=== PATIENT | male | born 1965 | race Caucasian/White ===

== ENCOUNTER 2017-04-13 09:05 | Day surgery (SDC) | payer BC ==
[~2017-04-13] VITALS: Ht 175.3 cm; Wt 121.1 kg
[~2017-04-13 09:05] MED LIST: LOPRESSOR 225 MG/TAB PO; NORCO 325 MG-7.1 TAB PO
[2017-04-13 09:57] VITALS: BP 147/82; PULSE 65; TEMP 98
[2017-04-13 13:10] VITALS: BP 150/94; PULSE 65; TEMP 97.4
[2017-04-13 13:25] VITALS: BP 131/101; PULSE 68
[2017-04-13 13:50] VITALS: BP 124/71; PULSE 58
[2017-04-13] MEDS ORDERED: NORCO 325 MG-51 TAB PO (14:07)
[2017-04-13] MEDS ORDERED: PYRIDIUM 100MG100 MG PO (14:07)
[2017-04-13] MEDS ORDERED: COLACE 100100 MG/CAP PO (14:08)
[2017-04-13 14:10] VITALS: BP 115/71; PULSE 59
[2017-04-13 17:41] VITALS: BP 132/91; PULSE 63; TEMP 97
== END 2017-04-13 15:05 | disposition home or self-care (01) ==
LOC: SDCO 09:05
DX: N20.1 Calculus of ureter (principal); E78.00 Pure hypercholesterolemia, unspecified; E66.9 Obesity, unspecified; F17.220 Nicotine dependence, chewing tobacco, uncomplicated; I10 Essential (primary) hypertension; M19.90 Unspecified osteoarthritis, unspecified site; F41.9 Anxiety disorder, unspecified; Z90.49 Acquired absence of other specified parts of digestive tract; Z84.1 Family history of disorders of kidney and ureter; Z82.49 Family history of ischemic heart disease and other diseases of the circulatory system; Z83.3 Family history of diabetes mellitus
CPT/HCPCS: C1769; C1894; C2617; J0690; J1100; J1885; J2405; J2704; J3010; J7120

== ENCOUNTER 2017-10-05 10:11 | Inpatient (IN) | payer BC ==
[~2017-10-05] VITALS: Ht 175.3 cm; Wt 117.2 kg
[~2017-10-05 10:11] MED LIST changes: +COLACE 100100 MG/CAP PO; +NORCO 325 MG-51 TAB PO; +PYRIDIUM 100MG100 MG PO
[2017-10-05] MEDS ORDERED: PEPTO BISM262 MG/15 PO (11:01)
[2017-10-05 11:21] LABS: BASO % 0.2 % (0.0-2.0); EOS % 0.2 % (0-4.0); GRAN # 10.1 (1.4-6.5); GRAN % 78.9 % (42.2-75.2); HEMOGLOBIN 15.2 g/dl (13.5-18.0); LYMPH # 1.6 (1.2-3.4); LYMPH % 12.5 % (20.0-51.0); MEAN CELL VOLUME 91 fl (80.0-100.0); MEAN CORPUSCULAR HEMOGLOBIN 31 pg (27.0-31.0); MEAN CORPUSCULAR HGB CONC 34 g/dl (33.0-37.0); MEAN PLATELET VOLUME 10.5 fl (7.4-10.4); MONO % 7.8 % (1.7-9.3); PLATELET COUNT 174 K/mm3 (130-400); RED BLOOD COUNT 4.94 M/mm3 (4.20-5.60); REDCELL DISTRIBUTION WIDTH-CV 13.6 % (11.5-14.5)
[2017-10-05 11:36] LABS: ALBUMIN 4.4 gm/dL (3.5-5.0); BILIRUBIN,TOTAL 0.6 mg/dL (0.0-1.0); CALCIUM 9.1 mg/dL (8.4-10.2); CREATININE, serum 1.05 mg/dL (0.66-1.25); POTASSIUM 3.6 mmol/L (3.4-5.0); TOTAL PROTEIN 7.5 gm/dL (6.4-8.2)
[2017-10-05 12:03] LABS: COLLECTION METHOD CLEAN CATCH
[2017-10-05 12:14] LABS: PH 5 (5-8); SQUAMOUS EPITHELIAL None Seen /hpf; URINE APPEARANCE Clear; URINE BACTERIA None Seen /hpf; URINE BILIRUBIN Negative (NEGATIVE); URINE BLOOD 2+ (NEGATIVE); URINE COLOR Straw; URINE GLUCOSE Negative (NEGATIVE); URINE KETONE Trace (NEGATIVE); URINE LEUKOCYTE ESTERASE Negative (NEGATIVE); URINE NITRATE Negative (NEGATIVE); URINE PROTEIN(semi-quant) Negative (NEGATIVE); URINE RBC 0-2 /hpf; URINE UROBILINOGEN Negative (NEGATIVE)
[2017-10-05 16:36] VITALS: BP 140/69; PULSE 87; TEMP 99.8
[2017-10-05 19:46] VITALS: BP 134/75; PULSE 94; TEMP 98.9
[2017-10-06] VITALS (8 sets, daily range): BP systolic 124–144; BP diastolic 51–81; PULSE 96–106; TEMP 98.5–102.4
[2017-10-06 07:07] LABS: ALBUMIN 3.6 gm/dL (3.5-5.0); BILIRUBIN,TOTAL 0.7 mg/dL (0.0-1.0); CALCIUM 8.1 mg/dL (8.4-10.2); CREATININE, serum 0.99 mg/dL (0.66-1.25); MAGNESIUM 1.6 mg/dL (1.6-2.3); PHOSPHOROUS 2.7 mg/dL (2.5-4.5); POTASSIUM 3.8 mmol/L (3.4-5.0); TOTAL PROTEIN 6.5 gm/dL (6.4-8.2)
[2017-10-06 08:18] LABS: BASO % 0.2 % (0.0-2.0); GRAN # 12.7 (1.4-6.5); GRAN % 82.2 % (42.2-75.2); HEMATOCRIT 41.1 % (42.0-52.0); HEMOGLOBIN 13.8 g/dl (13.5-18.0); LYMPH # 1.4 (1.2-3.4); LYMPH % 8.9 % (20.0-51.0); MEAN CELL VOLUME 92 fl (80.0-100.0); MEAN CORPUSCULAR HEMOGLOBIN 31 pg (27.0-31.0); MEAN CORPUSCULAR HGB CONC 34 g/dl (33.0-37.0); MEAN PLATELET VOLUME 11.2 fl (7.4-10.4); MONO # 1.3 (0.1-0.6); MONO % 8.2 % (1.7-9.3); PLATELET COUNT 169 K/mm3 (130-400); RED BLOOD COUNT 4.45 M/mm3 (4.20-5.60); REDCELL DISTRIBUTION WIDTH-CV 13.8 % (11.5-14.5)
[2017-10-07 04:21] VITALS: BP 145/75; PULSE 92; TEMP 100.1
[2017-10-07 06:40] LABS: HEMATOCRIT 37.6 % (42.0-52.0); HEMOGLOBIN 12.6 g/dl (13.5-18.0); MEAN CELL VOLUME 91 fl (80.0-100.0); MEAN CORPUSCULAR HEMOGLOBIN 30 pg (27.0-31.0); MEAN CORPUSCULAR HGB CONC 34 g/dl (33.0-37.0); MEAN PLATELET VOLUME 10.8 fl (7.4-10.4); PLATELET COUNT 141 K/mm3 (130-400); RED BLOOD COUNT 4.15 M/mm3 (4.20-5.60); REDCELL DISTRIBUTION WIDTH-CV 13.7 % (11.5-14.5)
[2017-10-07 06:57] LABS: CREATININE, serum 0.98 mg/dL (0.66-1.25); MAGNESIUM 1.7 mg/dL (1.6-2.3); POTASSIUM 3.7 mmol/L (3.4-5.0)
[2017-10-07 07:21] LABS: BAND 10 % (0-10); LYMPHOCYTE 6 % (20.0-51.0); NEUTROPHILS 84 % (42.0-75.2); PLATELET ESTIMATE NORMAL (NORMAL)
[2017-10-07 08:19] VITALS: BP 132/75; PULSE 95; TEMP 97.8
[2017-10-07 09:40] VITALS: TEMP 99
[2017-10-07 11:34] VITALS: BP 142/73; PULSE 99; TEMP 99.5
[2017-10-07 15:39] VITALS: BP 139/67; PULSE 99; TEMP 101.1
[2017-10-07 19:52] VITALS: BP 130/80; PULSE 95; TEMP 99.2
[2017-10-08] VITALS (7 sets, daily range): BP systolic 115–142; BP diastolic 59–81; PULSE 76–97; TEMP 97.6–100.1
[2017-10-08 06:45] LABS: BASO % 0.2 % (0.0-2.0); EOS # 0.1 (0.0-0.7); GRAN # 9.3 (1.4-6.5); HEMOGLOBIN 12.2 g/dl (13.5-18.0); LYMPH # 1.3 (1.2-3.4); LYMPH % 10.8 % (20.0-51.0); MEAN CELL VOLUME 91 fl (80.0-100.0); MEAN CORPUSCULAR HEMOGLOBIN 30 pg (27.0-31.0); MEAN CORPUSCULAR HGB CONC 33 g/dl (33.0-37.0); MEAN PLATELET VOLUME 10.7 fl (7.4-10.4); MONO % 8.7 % (1.7-9.3); PLATELET COUNT 149 K/mm3 (130-400); RED BLOOD COUNT 4.04 M/mm3 (4.20-5.60); REDCELL DISTRIBUTION WIDTH-CV 13.7 % (11.5-14.5)
[2017-10-08 06:48] LABS: HEMATOCRIT 36.8 % (42.0-52.0)
[2017-10-08 07:04] LABS: CREATININE, serum 0.88 mg/dL (0.66-1.25); POTASSIUM 3.6 mmol/L (3.4-5.0)
[2017-10-09 03:56] VITALS: BP 121/50; PULSE 84; TEMP 98.6
[2017-10-09 07:20] LABS: BASO % 0.3 % (0.0-2.0); EOS # 0.2 (0.0-0.7); EOS % 1.9 % (0-4.0); GRAN # 6.7 (1.4-6.5); GRAN % 71.3 % (42.2-75.2); HEMATOCRIT 37.8 % (42.0-52.0); HEMOGLOBIN 12.4 g/dl (13.5-18.0); LYMPH # 1.6 (1.2-3.4); LYMPH % 17.1 % (20.0-51.0); MEAN CELL VOLUME 92 fl (80.0-100.0); MEAN CORPUSCULAR HEMOGLOBIN 30 pg (27.0-31.0); MEAN CORPUSCULAR HGB CONC 33 g/dl (33.0-37.0); MEAN PLATELET VOLUME 10.7 fl (7.4-10.4); MONO # 0.9 (0.1-0.6); PLATELET COUNT 184 K/mm3 (130-400); RED BLOOD COUNT 4.11 M/mm3 (4.20-5.60); REDCELL DISTRIBUTION WIDTH-CV 14.1 % (11.5-14.5)
[2017-10-09 07:33] LABS: CALCIUM 8.1 mg/dL (8.4-10.2); CREATININE, serum 0.88 mg/dL (0.66-1.25); POTASSIUM 3.5 mmol/L (3.4-5.0)
[2017-10-09 07:39] VITALS: BP 153/85; PULSE 77; TEMP 98.9
[2017-10-09 09:49] LABS: MAGNESIUM 2.4 mg/dL (1.6-2.3); PHOSPHOROUS 2.8 mg/dL (2.5-4.5)
[2017-10-09] MEDS ORDERED: GAS AID MAXIMU125 MG PO (10:03)
[2017-10-09] MEDS ORDERED: PROTONIX 40MG T40 MG PO (10:04)
== END 2017-10-09 16:25 | disposition home or self-care (01) | DRG 439 ==
LOC: COL.ER 10:11 → MEDICAL 15:24
PROVIDERS: Emergency Medicine; Internal Medicine; Physician Assistant
DX: K85.90 Acute pancreatitis without necrosis or infection, unspecified (principal); E87.1 Hypo-osmolality and hyponatremia; K21.9 Gastro-esophageal reflux disease without esophagitis; Z87.891 Personal history of nicotine dependence; I10 Essential (primary) hypertension; D64.9 Anemia, unspecified
CPT/HCPCS: 99222-AI; 99231-AI; 99232-AI; 99239; A9284; G0378; J1644; J2185; J2270; J2765; J3010; J7030; Q9967

== ENCOUNTER → 2018-01-31 | Outpatient (CLI) | payer BC ==
[~2018-01-31] VITALS: Ht 175.3 cm; Wt 119.0 kg
[~2018-01-31] MED LIST changes: +GAS AID MAXIMU125 MG PO; +MOBIC15 MG PO; +PEPTO BISM262 MG/15 PO; +PROTONIX 40MG T40 MG PO; +ROBAXIN 50500 MG/TAB PO; +VOLTAREN GEL 1%1 TU TP
[2018-01-31 12:29] VITALS: BP 129/92; PULSE 74
[2018-01-31 13:15] VITALS: BP 145/99; PULSE 77
== END ==
LOC: COL.RAD 12:00
DX: M54.41 Lumbago with sciatica, right side (principal)
CPT/HCPCS: J3301

== ENCOUNTER → 2018-02-22 | Outpatient (CLI) | payer BC ==
[~2018-02-22] VITALS: Ht 175.3 cm; Wt 119.1 kg
[2018-02-22 13:30] VITALS: BP 132/84; PULSE 69
[2018-02-22 14:30] VITALS: BP 139/88; PULSE 75
== END ==
LOC: COL.RAD 12:30
DX: M54.41 Lumbago with sciatica, right side (principal); G89.29 Other chronic pain
CPT/HCPCS: J3301

== ENCOUNTER → 2019-04-14 | Outpatient (CLI) | payer OTHER | LOC: COL.RAD 14:00 | DX: M51.34 Other intervertebral disc degeneration, thoracic region (principal); M75.101 Unspecified rotator cuff tear or rupture of right shoulder, not specified as traumatic; S43.431A Superior glenoid labrum lesion of right shoulder, initial encounter ==

== ENCOUNTER → 2019-08-15 | Outpatient (CLI) | payer OTHER ==
[2019-08-15 18:08] LABS: ANION GAP 8 mmol/L (7-16); BLOOD UREA NITROGEN 17 mg/dL (9-20); CALCIUM 9.3 mg/dL (8.4-10.2); CARBON DIOXIDE 26 mmol/L (22-30); CHLORIDE 106 mmol/L (98-107); CREATININE, serum 1.22 (0.66-1.25); GLUCOSE 90 mg/dL (74-106); POTASSIUM 3.9 mmol/L (3.4-5.0); SODIUM 141 mmol/L (137-145)
[2019-08-15 18:17] LABS: BASO % 0.5 % (0.0-2.0); EOS # 0.1 (0.0-0.7); EOS % 1.3 % (0-4.0); GRAN # 3.5 (1.4-6.5); GRAN % 54.8 % (42.2-75.2); HEMATOCRIT 44.6 % (42.0-52.0); LYMPH # 2.1 (1.2-3.4); LYMPH % 33.8 % (20.0-51.0); MEAN CELL VOLUME 90 fl (80.0-100.0); MEAN CORPUSCULAR HEMOGLOBIN 30 pg (27.0-31.0); MEAN CORPUSCULAR HGB CONC 34 g/dl (33.0-37.0); MEAN PLATELET VOLUME 11.2 fl (7.4-10.4); MONO # 0.6 (0.1-0.6); MONO % 9.3 % (1.7-9.3); PLATELET COUNT 196 K/mm3 (130-400); RED BLOOD COUNT 4.94 M/mm3 (4.20-5.60); REDCELL DISTRIBUTION WIDTH-CV 13.3 % (11.5-14.5)
[2019-08-15 18:20] LABS: TROPONIN-I < 0.012 ng/mL (0.000-0.035)
== END ==
LOC: ZCOL.LAB 16:47
PROVIDERS: Internal Medicine Interventional Cardiology
DX: R07.9 Chest pain, unspecified (principal)

== ENCOUNTER 2019-09-25 12:14 | Day surgery (SDC) | payer BC ==
[~2019-09-25] VITALS: Ht 175.3 cm; Wt 122.6 kg
[2019-09-25] VITALS (13 sets, daily range): BP systolic 99–132; BP diastolic 47–95; PULSE 64–78; TEMP 97.1–98.1
[2019-09-25 13:26] LABS: HEMOGLOBIN 13.9 g/dl (13.5-18.0); MEAN CELL VOLUME 90 fl (80.0-100.0); MEAN CORPUSCULAR HEMOGLOBIN 30 pg (27.0-31.0); MEAN CORPUSCULAR HGB CONC 34 g/dl (33.0-37.0); MEAN PLATELET VOLUME 10.7 fl (7.4-10.4); PLATELET COUNT 162 K/mm3 (130-400); RED BLOOD COUNT 4.57 M/mm3 (4.20-5.60); REDCELL DISTRIBUTION WIDTH-CV 13.2 % (11.5-14.5)
[2019-09-25 13:30] LABS: PROTHROMBIN TIME 11.6 SECONDS (9.7-12.8)
[2019-09-25 13:32] LABS: PARTIAL THROMBOPLASTIN TIME 32.7 SECONDS (26.0-37.0)
[2019-09-25 13:48] LABS: CREATININE, serum 1.05 (0.66-1.25); POTASSIUM 4.4 mmol/L (3.4-5.0)
--- NOTE | 2019-09-25 14:34 | NUR ---
SEE MERGE FOR MEDICATION ADMINISTRATION TIMES AND INTRA/POST PROCEDURE SEDATION ASSESSMENTS.
[2019-09-25] MEDS ORDERED: ASPIRIN 81M81 MG/TA2 PO (15:02)
[2019-09-25] MEDS ORDERED: LIPITOR20 MG PO (15:02)
[2019-09-25] MEDS ORDERED: LASIX 20MG TABL20 MG PO (15:03)
--- NOTE | 2019-09-25 16:03 | NUR ---
Patient returned from [facility] at 1510, radial band is in place, pucture site is observed to be clean, dry and intact. Does have arm board in place as well.
--- NOTE | 2019-09-25 17:45 | NUR ---
Removed 3 ml air from TR band, puncture site noted to bleed, inflated band with 5 units of air, bleeding resolved. VS are within normal limits.
--- NOTE | 2019-09-25 19:40 | NUR ---
PT ready for departure/ TR band was deflated at 1900, no bleeding or hematoma since that time, site dressed with a bandaid. dc/rx/ and fu instructions were reviewed with pt and who didnt have any questions. PT has been able to eat and drink, has been ambulatory with steady gait. IV was dc'd with cath intact, dressing was applied. pt escorted to exit via wheelchair.
== END 2019-09-25 20:14 | disposition home or self-care (01) ==
LOC: COL.CAR 12:14
PROVIDERS: Internal Medicine Interventional Cardiology
DX: I25.10 Atherosclerotic heart disease of native coronary artery without angina pectoris (principal); I10 Essential (primary) hypertension; E78.5 Hyperlipidemia, unspecified; E66.9 Obesity, unspecified; I49.3 Ventricular premature depolarization; R94.39 Abnormal result of other cardiovascular function study; Z90.49 Acquired absence of other specified parts of digestive tract; Z87.891 Personal history of nicotine dependence; Z88.8 Allergy status to other drugs, medicaments and biological substances
CPT/HCPCS: J1644; J2250; J3010

== ENCOUNTER → 2021-06-04 | Outpatient (CLI) | payer OTHER ==
[~2021-06-04] MED LIST changes: +ASPIRIN 81M81 MG/TA2 PO; +LASIX 20MG TABL20 MG PO; +LIPITOR20 MG PO
== END ==
LOC: MHCPAIN 08:33
DX: M47.817 Spondylosis without myelopathy or radiculopathy, lumbosacral region (principal); M54.50 Low back pain, unspecified; M53.3 Sacrococcygeal disorders, not elsewhere classified
CPT/HCPCS: G0463

== ENCOUNTER → 2021-07-03 | Outpatient (CLI) | payer OTHER | LOC: MHCPAIN 12:15 | DX: M47.817 Spondylosis without myelopathy or radiculopathy, lumbosacral region (principal); M54.50 Low back pain, unspecified; M53.3 Sacrococcygeal disorders, not elsewhere classified ==

== ENCOUNTER → 2021-08-11 | Outpatient (CLI) | payer OTHER | LOC: MHCPAIN 15:46 | DX: M47.817 Spondylosis without myelopathy or radiculopathy, lumbosacral region (principal); M53.3 Sacrococcygeal disorders, not elsewhere classified; M54.50 Low back pain, unspecified | CPT/HCPCS: G0463 ==

== ENCOUNTER → 2023-10-22 | Outpatient (CLI) | payer OTHER ==
[~2023-10-22] MED LIST changes: +Iohexol 300 - 10 ML VIAL IV ONE; +Triamcinolone 40 MG/ML 1 ML VIAL IJ ONE
== END ==
LOC: COL.RAD 09:14
DX: M25.551 Pain in right hip (principal); M25.552 Pain in left hip
CPT/HCPCS: J0665; J3301; Q9967